=== PATIENT | female | born 1950 | race Caucasian/White ===

== ENCOUNTER 2016-10-18 07:45 | Day surgery (SDC) | payer MEDICARE ==
[2016-10-13 14:32] LABS: BASOPHILS 1.2 %; BASOPHILS ABSOLUTE 0.07 10/3/uL (0.0-0.16); EOSINOPHILS 3.7 %; EOSINOPHILS ABSOLUTE 0.21 10/3/uL (0.0-0.53); HEMATOCRIT 38.8 % (36.0-48.0); HEMOGLOBIN 13.1 g/dL (12.0-16.0); IMMATURE GRANULOCYTES 0.2 %; IMMATURE GRANULOCYTES ABSOLUTE 0.01 10/3/uL (0.0-0.11); LYMPHOCYTES 52.8 %; LYMPHOCYTES ABSOLUTE 2.97 10/3/uL (0.67-4.30); MEAN CORPUS HGB CONC 33.8 g/dL (32.0-36.0); MEAN CORPUSCULAR HEMOGLOB 31.6 pg (26.0-34.0); MEAN CORPUSCULAR VOLUME 93.7 fL (80-100); MEAN PLATELET VOLUME 10.3 fL (9.2-13.0); MONOCYTES 7.6 %; MONOCYTES ABSOLUTE 0.43 10/3/uL (0.21-1.20); NEUTROPHILS 34.5 %; NEUTROPHILS ABSOLUTE 1.94 10/3/uL (2.02-8.40); PLATELET COUNT 284 10/3/uL (150-400); RBC DISTRIBUTION WIDTH 13.3 % (12.0-16.0); RED CELL COUNT 4.14 10/6/uL (4.0-5.6); WHITE BLOOD CELLS 5.6 10/3/uL (4.5-10.5)
[2016-10-13 14:34] LABS: MANUAL DIFF NO %
[2016-10-13 14:52] LABS: A/G RATIO 1.3 (0.7-1.9); ALBUMIN 3.9 G/DL (3.5-5.0); ALKALINE PHOSPHATASE 104 U/L (45-117); BUN (BLOOD UREA NITROGEN) 7 MG/DL (6-23); CALCIUM, SERUM 8.8 MG/DL (8.5-10.4); CHLORIDE, SERUM 105 MMOL/L (96-112); CO2 (CARBON DIOXIDE) 29 MMOL/L (24-34); CREATININE 0.83 MG/DL (0.55-1.02); GFR AFRICAN AMERICAN 86 ML/MIN (>=60); GFR NON AFRICAN AMERICAN 75 ML/MIN (>=60); GLOBULIN 3.1 G/DL (2.5-4.1); GLUCOSE, SERUM 102 MG/DL (60-99); SGOT(AST) 22 U/L (5-40); SGPT(ALT) 18 U/L (5-65); SODIUM, SERUM 134 MMOL/L (135-148); TOTAL BILIRUBIN 0.3 MG/DL (0-1.2)
--- NOTE | ~2016-10-18 | OP ---
Record Of Operation [facility] [address] [place]. [address] NAME: OLE LORD : 54 STATUS : REG [facility]#: [id number] AGE: 66 ADM/REG DATE : 10/18/16 MR#: [id number] REPORT SERV DATE: 10/18/16 DICTATED BY: INDIA RICO III DATE: 10/18/16 REPORT STATUS : Draft TRANSCRIBED BY: MODL DATE: 10/18/16 DATE OF PROCEDURE: 10/18/2016 PREOPERATIVE DIAGNOSIS: Symptomatic cholelithiasis and cholecystitis. POSTOPERATIVE DIAGNOSIS: Symptomatic cholelithiasis and cholecystitis. PROCEDURE: Laparoscopic cholecystectomy. SURGEON: India Rico M.D. ANESTHESIA: General with intubation. COMPLICATIONS: None. ESTIMATED BLOOD LOSS: Less than 30 mL. SPECIMENS: Gallbladder. DRAINS: None. LAP AND SPONGE COUNT: Correct x3. BRIEF HISTORY: This 66-year-old female, presented with evidence for symptomatic cholelithiasis and cholecystitis. It was felt that laparoscopic cholecystectomy, possible laparotomy, was indicated. This procedure, the risks, benefits, and alternatives, including but not limited to the risk for bleeding, infection, common bile duct injury, bile leak, retained common bile stone, enterotomy, or injury to any abdominal structure, the definite possible need for laparotomy, possible persistence of her symptoms unrelieved by surgery, possibility of postoperative diarrhea or incisional hernia, and unforeseen complications including deep venous thrombosis, pulmonary embolus, myocardial infarction, stroke, pneumonia, and , were fully and completely explained to the patient at length prior to surgery. The fact that this was a major operation with risk for major morbidity and mortality, no guarantee for relief of her symptoms were explained. The expected length of recovery with open laparoscopic procedures was explained. The patient had questions, which were answered. She fully understood the risks and agreed to surgery as planned. FINDINGS: The patient's gallbladder yanez were thickened and inflamed. The gallbladder was distended and there were adhesions between the gallbladder and omentum consistent with cholecystitis. The liver and the remainder of the abdomen were otherwise unremarkable as far as we could determine through the laparoscope. DESCRIPTION OF PROCEDURE: After being appropriately identified and after discussing the risks of surgery with the patient and her family in the preoperative area, the patient was taken to the operating room and placed in the supine position on the operating room table. General anesthesia was administered. She was intubated without difficulty. The abdomen was Record Of Operation [address] [place]. [address] NAME: OLE LORD : 54 STATUS : [place] [facility] [place]#: [id number] AGE: 66 ADM/REG DATE : 10/18/16 MR#: [id number] REPORT SERV DATE: 10/18/16 DICTATED BY: INDIA RICO III DATE: 10/18/16 REPORT STATUS : Draft TRANSCRIBED BY: AURY DATE: 10/18/16 prepped and draped sterilely in the usual fashion. After an appropriate "time-out" per [facility] standards, a small transverse incision was made below the umbilicus. The skin and fascia on either side was elevated with towel clips. A Veress needle was placed through the incision into the peritoneal cavity. Correct position of the needle in the peritoneal cavity was confirmed by the hanging drop test. The abdominal cavity was then insufflated to about 13 mmHg with carbon dioxide. Correct position of air in the peritoneal cavity was confirmed by palpation. The Veress needle was removed and replaced with 10 mm trocar. The laparoscope was placed through this. The patient was placed in the reverse Trendelenburg position and to her left. A second 10 mm trocar was placed just below the xiphoid process, to the right of the falciform ligament, under direct vision with the laparoscope. Two 5 mm trocars were placed along the right subcostal margin, one in the midaxillary line, the other in the midclavicular line. These were also placed under direct vision with the laparoscope. The upper abdomen was inspected. The gallbladder appeared to be chronically diseased. The gallbladder yanez were thickened and inflamed consistent chronic cholecystitis. The liver and remainder of the upper abdomen were otherwise unremarkable as far as we could determine through the laparoscope. The appropriate instruments were placed through the trocars. The gallbladder was grasped and the infundibulum of the gallbladder was retracted laterally and inferiorly so as to expose the triangle of Calot. Using careful sharp and blunt dissection, the cystic duct was carefully and meticulously defined proximally and distally. The cystic duct was fairly long. The junction of the cystic duct with the common bile duct was appreciated, but not skeletonized. The cystic artery was similarly defined proximally and distally. The fibrous and fatty tissue between these structures was divided so as to clearly identify the critical angle. Once these structures were clearly defined, the cystic duct was clipped using two clips on the common bile duct side and one on the gallbladder side, all placed as close to the gallbladder as possible, taking care not encroach upon or injure the common bile duct in any way. The cystic duct was then divided between these clips as close to the gallbladder as possible. We elected not to perform a cholangiogram because there was no preoperative or intraoperative evidence for biliary dilatation and because the patient's preoperative liver enzymes were normal and because her biliary anatomy was clearly defined. Again, the structure was not divided or clipped until the critical angle and triangle of Calot had been clearly identified. The cystic artery was then similarly clipped and divided as close to the gallbladder as possible. Using the spatula and the cautery, the gallbladder was carefully dissected from the liver bed. This went very well. Before the gallbladder was completely removed, the gallbladder bed and portal areas were irrigated numerous times with saline. The saline was aspirated dry. This process was repeated several times until hemostasis was meticulously and thoroughly assured in all areas. It was also assured that the clips in the portal areas were in good position and there was no extravasation of bile from any accessory bile duct. Once this was assured, the gallbladder was completely dissected away from the liver and placed in the Endopouch. The liver bed was elevated, irrigated, and inspected for meticulous and thorough hemostasis and for absence of any biliary extravasation and to be certain that the clips were in good position. Once this was assured, the gallbladder and Endopouch were brought out through the infraumbilical incision and placed in the laparoscope through the subxiphoid port. The fascia of the infraumbilical incision was closed with 0 Vicryl suture. The lateral two trocars were removed. These two lower trocar sites were inspected on the underside for hemostasis with the laparoscope. Once this was assured, the subxiphoid trocar was removed under direct vision with the laparoscope to assure hemostasis in this incision. The air was Record Of [address] [place] [place]. [address] NAME: KARLAJAMESOLE : 54 STATUS : [place] [facility] [place]#: [id number] AGE: 66 ADM/REG DATE : 10/18/16 MR#: [id number] REPORT SERV DATE: 10/18/16 DICTATED BY: INDIA RICO III DATE: 10/18/16 REPORT STATUS : Draft TRANSCRIBED BY: AURY DATE: 10/18/16 removed from the peritoneal cavity through this incision. The skin incisions were inspected for hemostasis, they were closed with running subcuticular 4-0 Monocryl stitches. They were injected with one-half percent Marcaine. Dressings were applied. Anesthesia was reversed and the patient was taken to the recovery room in stable condition. The patient tolerated the procedure well. Her family was informed of the results of surgery. The patient will be discharged later when she is stable, comfortable and tolerating liquids and able to void and ambulate. Her family was advised that she should remain on a liquid diet today and advance this as tolerated to a regular diet tomorrow. She should keep wounds clean and dry for 48 hours and that she should not drive for 3 to 4 days after surgery or while using narcotics or Phenergan. They were advised that she should resume her usual medications. She was given a prescription for a narcotic and Phenergan, which she was advised to not take while driving. She was asked to return to the office in two weeks for followup or sooner for nausea, vomiting, fever, chills, wound drainage, abdominal pain, weakness, or other problems prior to that time. DUDLEY/AURY India Rico III, M.D. / [id number] CC: Andrew Finney III, AZHIR
--- NOTE | ~2016-10-18 | PREOPHP ---
PreOp History and Physical [address] [place]. [address] NAME: OLE LORD : 54 STATUS : PRE [facility] [place] PAT#: [id number] AGE: 66 ADM/REG DATE : MR#: [id number] REPORT SERV DATE: 10/17/16 DICTATED BY: INDIA RICO III DATE: 10/08/16 REPORT STATUS : Draft TRANSCRIBED BY: MODL DATE: 10/08/16 HISTORY OF PRESENT ILLNESS: This 66-year-old female comes to the operating room for laparoscopic cholecystectomy, possible laparotomy, for symptomatic cholecystitis and gallbladder sludge. The patient complains of one-year history of intermittent episodes of right upper quadrant abdominal pain. This pain has been associated with nausea and vomiting. The patient describes the pain as intermittent in nature. The patient has been to four different GI physicians in the past including [facility]. She has also been seen by surgery at [facility]. She has evidence for chronic cholecystitis on imaging studies with gallbladder wall thickening and gallbladder sludge. Her symptoms are felt to be consistent with chronic cholecystitis with probable cholelithiasis. She comes to the operating room now for laparoscopic cholecystectomy, possible laparotomy. PAST MEDICAL HISTORY: 1. Hypertension. 2. COPD. 3. Hypothyroidism. 4. Transient ischemic attack in the past. 5. Depression. 6. GERD. 7. Possible celiac disease. ALLERGIES: PENICILLIN. MEDICATIONS: Phenergan, levothyroxine, Lasix, omeprazole, lisinopril, oxycodone, carvedilol, Crestor, Zofran, and gabapentin. PAST SURGICAL HISTORY: Includes hysterectomy and back surgery, right knee replacement, tonsillectomy. FAMILY HISTORY: Positive for diabetes and heart disease. SOCIAL HISTORY: The patient has a history of tobacco abuse in the past. She has a history of alcohol use. REVIEW OF SYSTEMS: The patient complains of fatigue and abdominal pain. Her 14-point review of systems is otherwise unremarkable. PHYSICAL EXAMINATION: GENERAL: This is a female, in no acute distress. She is alert and oriented x3. VITAL SIGNS: Blood pressure 132/83, pulse 68, temperature 97.8. HEENT: Unremarkable. Cranial nerves 2 through 12 were normal. LUNGS: Clear. CARDIAC: Normal. ABDOMEN: Soft. Nontender. No masses. PreOp History and Physical [facility] [address] [address] NAME: OLE LORD : 54 STATUS : PRE [facility] [place] PAT#: [id number] AGE: 66 ADM/REG DATE : MR#: [id number] REPORT SERV DATE: 10/17/16 DICTATED BY: INDIA R[place] III DATE: 10/08/16 REPORT STATUS : Draft TRANSCRIBED BY: MODL DATE: 10/08/16 EXTREMITIES: Normal without edema. LABORATORY DATA: Gallbladder ultrasound and MRCP shows gallbladder sludge with gallbladder wall thickening consistent with cholecystitis. ASSESSMENT: 1. 66-year-old female with symptomatic cholelithiasis and chronic cholecystitis. 2. Hypertension. 3. Chronic obstructive pulmonary disease secondary to tobacco abuse. 4. Tobacco abuse. 5. Hypothyroidism. 6. Transient ischemic attack. 7. Gastroesophageal reflux disease. 8. Depression. PLAN: The patient comes to the operating room now for laparoscopic cholecystectomy, possible laparotomy. This procedure, the risks, benefits, and alternatives, including but not limited to the risk for bleeding, infection, common bile duct injury, bile leak, retained common bile duct stone, enterotomy, injury to any abdominal structure, the definite possible need for laparotomy, possible persistence of her symptoms unrelieved by surgery, possibility of postoperative diarrhea or incisional hernia, and unforeseen complications including deep venous thrombosis, pulmonary embolus, myocardial infarction, stroke, pneumonia, and , have been fully and completely explained to the patient and at length prior to surgery. The fact that this is a major operation with risk for major morbidity and mortality, no guarantee for relief of her symptoms have been explained to her. The expected length of recovery with both open and laparoscopic procedure has been explained. The fact that some of her symptoms may be due to celiac disease and therefore, not be relieved by surgery has been explained. In particular, her diarrhea might not be relieved by surgery or it could be made worse by cholecystectomy. The patient's questions have been answered. She clearly understands the risks and agrees to surgery as planned. DUDLEY/AURY India Rico III, M.D. / [id number]
[~2016-10-18 07:45] MED LIST: ABILIFY5 PO; ASAB PO; BENTYL10 PO; COREG12 PO; CRESTOR10 PO; CYMBALTA30 PO; ENDOCET1 TA3 PO; FLONASE NAS; FOSAMAX70 MG PO; HCTZ12.5 PO; L20 PO; L40 PO; LEVOTHYROXIN112 MCG PO; LEVOTHYROXIN88 MCG PO; NEUR800 PO; OS500+D PO; PERCOCET 7.5/321 TAB PO; PR25 PO; PRILO PO; PRIN20 PO; PRIN5 PO; PROMEGA PO; REG PO; REG5 PO; SYMBICORT 160/41 INH INH; TRILIPIX135 MG PO; XANAX1 MG PO; ZOFRANODT8 PO
[2016-10-18 13:27] LABS: HEMATOCRIT 38.9 % (36.0-48.0); HEMOGLOBIN 13.1 g/dL (12.0-16.0)
[2016-10-31] MEDS ORDERED: PR12.5 PO (11:59)
[2016-10-31] MEDS ORDERED: PERCOCET 7.5/321 TAB PO (12:00)
[2016-10-31] MEDS ORDERED: ZOFRANODT8 PO (12:00)
[2016-10-31] MEDS ORDERED: NEUR800 PO (12:00)
[2016-10-31] MEDS ORDERED: LEVOTHYROXIN88 MCG PO (12:01)
[2016-10-31] MEDS ORDERED: CRESTOR10 PO (12:01)
[2016-10-31] MEDS ORDERED: ZESTRIL5 MG PO (12:01)
[2016-10-31] MEDS ORDERED: PRILO PO (12:01)
[2016-10-31] MEDS ORDERED: COREG12 PO (12:01)
[2016-11-07] MEDS ORDERED: WELCHOL 625 MG625 MG PO (07:27)
[2016-11-07] MEDS ORDERED: PRIN10 PO (07:28)
[2016-11-07] MEDS ORDERED: ZOFRAN4 PO (07:29)
[2017-01-02] MEDS ORDERED: L20 PO (09:29)
[2017-01-02] MEDS ORDERED: REG PO (09:29)
[2017-01-02] MEDS ORDERED: CRESTOR10 PO (09:29)
[2017-01-02] MEDS ORDERED: ZOFRAN8 PO (09:31)
[2017-01-02] MEDS ORDERED: PERCOCET 7.5/321 TAB PO (09:31)
[2017-01-02] MEDS ORDERED: PR25 PO (09:35)
== END 2016-10-18 14:15 | disposition home or self-care (01) ==
LOC: SDC 07:45
PROVIDERS: Surgery
PROC: 0FT44ZZ Resection of Gallbladder, Percutaneous Endoscopic Approach (ICD-10-PCS; principal; 2016-10-18 09:00)
DX: K81.1 Chronic cholecystitis (principal); I10 Essential (primary) hypertension; J44.9 Chronic obstructive pulmonary disease, unspecified; F32.9 Major depressive disorder, single episode, unspecified; E03.9 Hypothyroidism, unspecified; K21.9 Gastro-esophageal reflux disease without esophagitis; E78.5 Hyperlipidemia, unspecified; D64.9 Anemia, unspecified; Z88.0 Allergy status to penicillin; Z79.899 Other long term (current) drug therapy; Z90.710 Acquired absence of both cervix and uterus; Z98.890 Other specified postprocedural states; Z86.73 Personal history of transient ischemic attack (TIA), and cerebral infarction without residual deficits; Z96.651 Presence of right artificial knee joint; Z90.89 Acquired absence of other organs; Z83.3 Family history of diabetes mellitus; Z82.49 Family history of ischemic heart disease and other diseases of the circulatory system; Z87.891 Personal history of nicotine dependence; Z88.1 Allergy status to other antibiotic agents; Z88.5 Allergy status to narcotic agent
CPT/HCPCS: 71020; 80053; 85014; 85018; 85025; 88304; 93005; A9270-GY; J1170; J1580; J2250; J2405; J2550; J2710; J3010